=== PATIENT | female | born 1995 | race Caucasian/White ===

== ENCOUNTER 2020-07-27 15:25 | Observation (INO) | payer OTHER, BC ==
[2020-07-27] MEDS ORDERED: Sodium Chloride 0.9% 10 ML Syringe FLUSH PRN (15:33)
[2020-07-27] MEDS ORDERED: Labetalol 100 MG/20 ML MDV IVPUSH ONE ×2 (15:35→16:27)
--- NOTE | 2020-07-27 15:36 | PCM.LDHP ---
L&D History of Present Illness - General Date of Service: 07/27/20 Admit Problem/Dx: Patient Status Order with Admit Dx/Problem 07/27/20 15:34 Patient Status [ADT] Routine Admission Diagnosis/Problem Admission Diagnosis/Problem Elevated blood pressure reading Source of Information: Patient History Limitations: Reports: No Limitations - History of Present Illness Introduction:: Patient is a 25 y/o at 20 0/7 wks by LMP c/w 8 week scan who presents for further BP monitoring. Patient at 19 3/7 wks appt noted to have severe BP's. This was on 07/23. Was sent to L&D and given 20 mg of IV labetalol and started on 30 mg of oral Nifedipine both that night and then planned AM dose. Lab work WNL. On 07/24 was seen in clinic with a severe range and mild range repeat BP. Dose of Nifedipine maintained, but on 07/25 again had a severe and the repeat mild range BP. On 07/26 Nifedipine dose was 60 mg, but again with severe BP. Took a dose of 90 mg this AM, 07/27, but with several severe range BP's noted in clinic. Sent now to L&D for further monitoring . Reports she feels well other than swelling in her feet. no headaches, vision changes, or RUQ pain. - Related Data Allergies/Adverse Reactions: Allergies Allergy/AdvReac Type Severity Reaction Status Date / Time No Known Allergies Allergy Verified 07/23/20 15:00 Home Medications: Home Meds Pnv,Calcium 72/Iron/Folic Acid [ Vitamin Plus Low Iron] 2 tab PO DAILY 07/23/20 [History] NIFEdipine [Nifedical XL] 90 mg PO DAILY 07/27/20 [History] Past Medical History Psychiatric History: Reports: ADHD - Past Surgical History HEENT Surgical History: Reports: Myringotomy w Tube(s), Naso-Sinus Surgery (maxillary sinus procedure), Oral Surgery (tooth extraction) GI Surgical History: Reports: Appendectomy Social & Family History - Tobacco Use Tobacco Use Status *Q: Never Tobacco User - Alcohol Use Alcohol Use History: No - Recreational Drug Use Recreational Drug Use: No H&P Review of Systems - Review of Systems: Review Of Systems: See Below General: Reports: No Symptoms HEENT: Denies: Visual Changes Pulmonary: Reports: No Symptoms Cardiovascular: Reports: No Symptoms Gastrointestinal: Reports: No Symptoms. Denies: Abdominal Pain Genitourinary: Reports: No Symptoms Musculoskeletal: Reports: No Symptoms Psychiatric: Reports: No Symptoms Neurological: Reports: No Symptoms. Denies: Headache L&D Exam - Exam Exam: See Below - OB Specific Heart Tones per Min: 150 - Exam General: Alert, Oriented, Cooperative Lungs: Clear to Auscultation, Normal Respiratory Effort Cardiovascular: Regular Rate, Regular Rhythm GI/Abdominal Exam: Soft, Non-Tender Extremities: Normal Inspection, Pedal Edema (+2) Skin: Warm, Dry, Intact Neurological: Hyperreflexia. No: Clonus DTR: 2+: Bicep (L), Bicep (R), 3+: Patella (L) (Able to trigger in thigh), Patella (R) (Able to trigger reflex in thigh) Psychiatric: Alert, Normal Affect, Normal Mood - Problem List (1) 20 weeks gestation of SNOMED Code(s): 32448233 ICD Code: Z3A.20 - 20 WEEKS GESTATION OF Status: Acute Current Visit: Yes (2) Elevated blood pressure affecting , antepartum SNOMED Code(s): 46954086, 68204233, 882853977 ICD Code: O16.9 - UNSPECIFIED MATERNAL HYPERTENSION, UNSPECIFIED TRIMESTER Status: Acute Current Visit: Yes Problem List Initiated/Reviewed/Updated: Yes Orders Last 24hrs: Active Orders 24 hr Category Date Time Status Patient Status [ADT] Routine ADT 07/27/20 15:34 Ordered Peripheral IV Care [RC] . DIRECTED Care 07/27/20 15:35 Ordered Vital Signs [RC] PER UNIT ROUTINE Care 07/27/20 15:34 Ordered Labetalol [Normodyne] Med 07/27/20 15:35 Once 20 mg IVPUSH ONETIME ONE Sodium Chloride 0.9% [Saline Flush] Med 07/27/20 15:33 Ordered 10 ml FLUSH ASDIRECTED PRN Peripheral IV Insertion Adult [OM.PC] Urgent Oth 07/27/20 15:33 Ordered Resuscitation Status Routine Resus Stat 07/27/20 15:33 Ordered Medication Orders Sodium Chloride (Sodium Chloride 0.9% 10 Ml Syringe) 10 ml FLUSH ASDIRECTED PRN PRN Reason: Keep Vein Open Assessment/Plan Comment:: Patient with initial BP's of 163/98 and 171/104. Given 20 mg of IV labetalol and BP's remained 163/94 and 165/97. Given 2nd dose of 20 mg of IV labetalol and also started on 6 gram magnesium bolus and then 2 gram per hour maintenance. Had previously been in discussion with M Dr. Morales and will transfer patient to [facility]. Dr. Chou agrees to transfer. BP's after 2nd dose were 165/85 and then 148/78. Will continue to monitor closely. Will give additional antihypertensive medications as needed.
[2020-07-27] MEDS ORDERED: Magnesium Sulfate/Water 4 GM in Premix Bag 1 BAG IV ONE (16:28)
[2020-07-27] MEDS ORDERED: Magnesium Sulfate/Water 40 GM/1,000 ML BAG ONE (16:28)
[2020-07-27] MEDS ORDERED: Magnesium Sulfate/Water 2 GM/50 ML BAG ONE (16:28)
[2020-07-27] MEDS ORDERED: Magnesium Sulfate/Water 2 GM in Premix Bag 1 BAG IV ONE (16:28)
[2020-07-27] MEDS ORDERED: Lactated Ringers 1,000 ML IV SCH (16:30)
[2020-07-27] MEDS ORDERED: Magnesium Sulfate/Water 40 GM/1,000 ML BAG IV SCH (16:30)
== END 2020-07-27 18:15 ==
LOC: JD.OB 15:25 → JD.OBCHECK 15:25 → JD.OB 15:34 → JD.OBCHECK 15:34 → EDLOC 15:34
PROVIDERS: ADMIT Obstetrics & Gynecology; ATTEND Obstetrics & Gynecology
DX: O16.2 Unspecified maternal hypertension, second trimester (principal); Z3A.20 20 weeks gestation of pregnancy; Z20.822 Contact with and (suspected) exposure to COVID-19
CPT/HCPCS: 87635; 96360; 96361; 96365; 96374; 96375; 96376; G0378; J3475; J3490; J7120; U0002

== ENCOUNTER 2023-12-06 19:10 | Emergency (ER) | payer OTHER ==
[2023-12-06] MEDS: Sodium Chloride 0.9% 1,000 ML IV SCH (19:39)
[2023-12-06] MEDS: HYDROmorphone 1 MG/ML Syringe IVPUSH ONE (19:53)
[2023-12-06] MEDS: Metoclopramide 10 MG/2 ML SDV IVPUSH ONE (19:53)
[2023-12-06 20:07] LABS: BASOPHILS PERCENT AUTO 0.5 % (0.0-1.0); EOSINOPHILS ABSOLUTE AUTO 0.3 K/mm3 (0.0-0.4); EOSINOPHILS PERCENT AUTO 2.9 % (0.0-6.0); HEMATOCRIT 37.7 % (37.0-47.0); HEMOGLOBIN 13.3 gm/dl (12.0-16.0); IMMATURE GRAN ABSOLUTE AUTO 0.02 K/mm3 (0.00-0.05); IMMATURE GRAN PERCENT AUTO 0.2 % (0.0-0.4); LYMPHOCYTES ABSOLUTE AUTO 2.6 K/mm3 (1.0-4.8); LYMPHOCYTES PERCENT AUTO 29.8 % (24.0-44.0); MEAN CORPUSCULAR HEMOGLOBIN 30.6 pg (28.0-32.0); MEAN CORPUSCULAR HGB CONC 35.3 g/dl (32.0-36.0); MEAN CORPUSCULAR VOLUME 86.7 fl (83.0-99.0); MEAN PLATELET VOLUME 9.9 fl (9.4-12.3); MONOCYTES ABSOLUTE AUTO 0.7 K/mm3 (0.0-0.8); MONOCYTES PERCENT AUTO 7.5 % (0.0-8.0); NEUTROPHILS ABSOLUTE AUTO 5.2 K/mm3 (1.8-7.7); NEUTROPHILS PERCENT AUTO 59.1 % (41.0-71.0); PLATELET COUNT,PLT 268 K/mm3 (150-400); RED BLOOD CELL COUNT 4.35 M/mm3 (4.10-5.30); WHITE BLOOD CELL COUNT,WBC 8.75 K/mm3 (3.9-11.3)
[2023-12-06 20:30] LABS: A/G RATIO 1.3 (1-2); ALBUMIN 4.1 g/dl (3.4-5.0); ANION GAP 13.7 (5-15); BILIRUBIN TOTAL 0.3 mg/dL (0.2-1.0); BUN/CREATININE RATIO 7.8 (14-18); CALCIUM 8.9 mg/dL (8.5-10.1); CREATININE 0.9 mg/dL (0.55-1.02); EST CRCL DRUG DOSING (CG) 92.11 mL/min; POTASSIUM,K 3.7 mEq/L (3.5-5.1); PROTEIN TOTAL,TP 7.3 g/dl (6.4-8.2)
[2023-12-06] MEDS: Propofol 200 MG/20 ML SDV IVPUSH ONE (20:30)
== END 2023-12-06 21:35 | disposition home or self-care (01) ==
LOC: JD.ED 19:10
DX: S82.451A Displaced comminuted fracture of shaft of right fibula, initial encounter for closed fracture (principal); S82.892A Other fracture of left lower leg, initial encounter for closed fracture; I10 Essential (primary) hypertension; Z90.49 Acquired absence of other specified parts of digestive tract; Z79.899 Other long term (current) drug therapy; X50.1XXA Overexertion from prolonged static or awkward postures, initial encounter; Y93.6A Activity, physical games generally associated with school recess, summer camp and children
CPT/HCPCS: 27810; 36415; 73590; 73600; 73610; 80053; 85025; 96374; 96375; 99152; 99284; J1171; J2704; J2765; J7030

== ENCOUNTER 2023-12-07 17:56 | Emergency (ER) | payer OTHER ==
[2023-12-07] MEDS: HYDROmorphone 1 MG/ML Syringe IM ONE (19:29)
[2023-12-07] MEDS: Ketorolac 30 MG/ML SDV IM ONE (19:31)
== END 2023-12-07 20:50 | disposition home or self-care (01) ==
LOC: JD.ED 17:56
DX: S82.892D Other fracture of left lower leg, subsequent encounter for closed fracture with routine healing (principal); I10 Essential (primary) hypertension; Z79.899 Other long term (current) drug therapy; Z90.49 Acquired absence of other specified parts of digestive tract; X58.XXXD Exposure to other specified factors, subsequent encounter
CPT/HCPCS: 96372; 99283; J1171; J1885

== ENCOUNTER 2023-12-17 07:15 | Day surgery (SDC) | payer OTHER ==
[2023-12-17] MEDS: Lactated Ringers 1,000 ML IV SCH (07:25)
[2023-12-17] MEDS ORDERED: Dexamethasone 4 MG/ML 5 ML MDV ONE (08:16)
[2023-12-17] MEDS ORDERED: Ondansetron 4 MG/2 ML SDV ONE (08:16)
[2023-12-17] MEDS ORDERED: Lidocaine 1% 5 ML VIAL ONE (08:16)
[2023-12-17] MEDS ORDERED: Propofol 200 MG/20 ML SDV ONE ×11 (08:17→10:22)
[2023-12-17] MEDS ORDERED: fentaNYL 250 MCG/5 ML SDV ONE (08:17)
[2023-12-17] MEDS ORDERED: Midazolam 1 MG/ML 2 ML SDV ONE (08:17)
[2023-12-17] MEDS ORDERED: Ropivacaine 0.5% 5 MG/ML 30 ML SDV ONE (08:23)
[2023-12-17] MEDS ORDERED: Ketamine 200 MG/20 ML MDV ONE (08:55)
[2023-12-17] MEDS ORDERED: ceFAZolin 2 GM Vial ONE (09:49)
[2023-12-17] MEDS ORDERED: HYDROmorphone 0.5 MG/0.5 ML Syringe IVPUSH ONE (10:00)
[2023-12-17] MEDS ORDERED: fentaNYL 100 MCG/2 ML SDV ONE (10:18)
[2023-12-17] MEDS: fentaNYL 100 MCG/2 ML SDV IVPUSH PRN (11:12)
[2023-12-17] MEDS: Bupivacaine 0.25% 10 ML SDV ONE (12:51)
[2023-12-17] MEDS: oxyCODONE 5 MG Tab PO PRN (13:00)
== END 2023-12-17 13:30 | disposition home or self-care (01) ==
LOC: JD.SDS 07:15
PROVIDERS: ATTEND Orthopaedic Surgery
DX: S82.841A Displaced bimalleolar fracture of right lower leg, initial encounter for closed fracture (principal); I10 Essential (primary) hypertension; Z79.899 Other long term (current) drug therapy; X58.XXXA Exposure to other specified factors, initial encounter
CPT/HCPCS: 27814; 64445; 76000; A9270; C1713; C1776; J0665; J0690; J1100; J2250; J2405; J2704; J2795; J3010; J7120; 01480; 64450; J3490